=== PATIENT | male | born 1970 | race Caucasian/White ===

== ENCOUNTER 2018-04-03 18:43 | Emergency (ER) | payer OTHER ==
[2018-04-03] MEDS: LORAZEPAM 1 MG TAB PO (20:17)
[2018-04-03] MEDS: IBUPROFEN 600 MG TAB PO (20:17)
== END 2018-04-03 21:42 | disposition home or self-care (01) ==
LOC: FTE 18:43
DX: T21.02XA Burn of unspecified degree of abdominal wall, initial encounter (principal); S49.92XA Unspecified injury of left shoulder and upper arm, initial encounter; S29.009A Unspecified injury of muscle and tendon of unspecified wall of thorax, initial encounter; V89.2XXA Person injured in unspecified motor-vehicle accident, traffic, initial encounter; X19.XXXA Contact with other heat and hot substances, initial encounter; Y92.9 Unspecified place or not applicable
CPT/HCPCS: 71046; 99283-25